=== PATIENT | female | born 2000 | race Caucasian/White ===

== ENCOUNTER 2022-07-29 20:17 | Emergency (ER) | payer MEDICAID, OTHER ==
[~2022-07-29] VITALS: Ht 152.4 cm; Wt 45.0 kg
[2022-07-29 20:26] VITALS: BP 129/81
== END 2022-07-29 22:26 | disposition left against medical advice (07) ==
LOC: ER 20:19
DX: H92.09 Otalgia, unspecified ear (principal); Z53.21 Procedure and treatment not carried out due to patient leaving prior to being seen by health care provider

== ENCOUNTER 2025-05-31 01:40 | Emergency (ER) | payer MEDICAID ==
[~2025-05-31] VITALS: Ht 154.9 cm; Wt 42.2 kg
--- NOTE | 2025-05-31 03:05 | Physician Documentation ---
HPI ~ General Chief Complaint: Medication Request Stated Complaint: EPILEPSY Time Seen by MD: 02:57 Primary Medical Doctor: none History of Present Illness HPI Comments Patient presents to the emergency room requesting refill of her seizure medication. She has been out for two days. Also having slight amount of back pain for which she takes gabapentin for. No dysuria Medication Reconciliation Allergies: Coded Allergies: No Known Allergies (Unverified , 07/29/22) Past Medical History Past Medical History: GERD, Depression Past Surgical History: no surgical history Alcohol Use: None Drug Use: marijuana Review of Systems ROS All review of systems negative except as per HPI Physical Exam Physical Exam Vital Signs: Temperature: 97.7, Source: Oral, Heart Rate: 101, Respiratory Rate: 16, BP: 101/64, Pulse Oximetry: 96, Weight: 42.230 Oxygen Flow Rate: 0 Physical Exam General: Patient is awake, alert, oriented x4 in no acute distress Head: Normocephalic and atraumatic. Eyes: Conjunctival normal. EOMI. PERRL. ENT: Mucous membranes moist. Neck: Supple, trachea is midline. Chest: Clear to auscultation bilaterally without rales, rhonchi, or wheezes. There is no accessory muscle use or retractions. Cardiac: Heart rate 90 and regular without murmurs, gallops, or rubs. Abd: Soft, nondistended, nontender, with normoactive bowel sounds. No guarding, rebound, or rigidity. Progress Results/Orders Results/Orders Vital Signs 05/31/25 01:41 Temp 97.7 Pulse 101 Resp 16 B/P (MAP) 101/64 Pulse Ox 96 O2 Flow Rate 0 Medical Decision Making Additional information obtaine: old records Findings Patient presents to the emergency room for medication refill. I will refill her medication. Differential Dx:Considerations: Include: Adverse circumstances, Economic, Psychosocial, Medical services unavail., Medication refill, Medication non- compliance, Other Departure Disposition: HOME / SELF CARE / HOMELESS Impression: Primary Impression: General medical exam Condition: Stable Discharge Instructions: Medicine Refill at the Emergency Department Referrals: NO PRIMARY CARE PROVIDER (PCP) Prescriptions Zonisamide (Zonisamide) 100 Mg Capsule 2 CAP PO Q12H, #60 CAP 0 Refills Prov: JERALD EASON MD 05/31/25 Signature Scribe Signature: No scribe Attestation: The note accurately reflects work and decisions made by me.Jerald Eason MD 05/31/25 03:17 JERALD EASON MD May 31, 2025 03:05
[2025-05-31] MEDS ORDERED: ZONI100C87 PO (03:16)
[2025-05-31] MEDS: ibuprofen tablet 400 MG TABLET PO ONE (03:24)
[2025-05-31 03:30] VITALS: BP 105/65; PULSE 99; RESP 16; TEMP 98.6; O2SAT 99
== END 2025-05-31 03:34 | disposition home or self-care (01) ==
LOC: ER 01:40
DX: Z00.00 Encounter for general adult medical examination without abnormal findings (principal); R56.9 Unspecified convulsions; Z76.0 Encounter for issue of repeat prescription; F12.90 Cannabis use, unspecified, uncomplicated; K21.9 Gastro-esophageal reflux disease without esophagitis; F32.A Depression, unspecified
CPT/HCPCS: 99283